=== PATIENT | male | born 1955 | race Caucasian/White ===

== ENCOUNTER 2017-03-03 18:56 | Emergency (ER) | payer OTHER ==
[2017-03-03 19:11] VITALS: BP 174/98
--- NOTE | 2017-03-03 19:13 | EDM.PDOC ---
ED HPI GENERAL MEDICAL PROBLEM - General Chief Complaint: Chest Pain Stated Complaint: BRONCHITIS-CHEST PAIN [id number] Time Seen by Provider: 03/03/17 19:13 Source of Information: Reports: Patient, RN, RN Notes Reviewed History Limitations: Reports: No Limitations - History of Present Illness INITIAL COMMENTS - FREE TEXT/NARRATIVE: Patient presents to the ER with c/o epigastric/chest pain. He states the pain is a 10/10. He describes the pain as burning. Patient states he has been seen at [facility] and was diagnosed with bronchitis, was given a Z-pack and a steroid. He states this burning pain has been going on for a few days. Patient admits to some constipation. He denies nausea or diarrhea, sob, fever or chills. Onset: Gradual Location: Reports: Chest Severity: Moderate Improves with: Reports: None Worsens with: Reports: None Associated Symptoms: Reports: Chest Pain, Cough, cough w sputum, Nausea/ Vomiting (states he coughs until he vomits at times) Treatments DYNAMITER: Reports: Other Medication(s) ("generic protonix" stated by the ) Mid-Sternal Chest Pain Score (Numeric/FACES): 10 - Related Data Allergies Allergy/AdvReac Type Severity Reaction Status Date / Time No Known Allergies Allergy Verified 03/03/17 19:10 Home Meds: Home Meds Levothyroxine [Synthroid] 25 mcg PO ACBREAKFAST 12/03/15 [History] Pantoprazole Sodium 40 mg PO DAILY 12/03/15 [History] Zolpidem [Ambien] 10 mg PO DAILY 02/09/16 [History] Azithromycin [Zithromax] 250 mg PO DAILY 03/03/17 [History] Prednisone [IMW: predniSONE] 10 mg PO DAILY 03/03/17 [History] Past Medical History HEENT History: Reports: None Cardiovascular History: Reports: None Respiratory History: Reports: Asthma, Bronchitis, Recurrent Gastrointestinal History: Reports: None Genitourinary History: Reports: None Musculoskeletal History: Reports: Back Pain, Chronic Neurological History: Reports: None Psychiatric History: Reports: None Endocrine/Metabolic History: Reports: None Hematologic History: Reports: None Immunologic History: Reports: None Oncologic (Cancer) History: Reports: None Dermatologic History: Reports: None - Infectious Disease History Infectious Disease History: Reports: None - Past Surgical History Head Surgeries/Procedures: Reports: None Social & Family History - Family History Family Medical History: Noncontributory - Tobacco Use Smoking Status *Q: Never Smoker Second Hand Smoke Exposure: No - Caffeine Use Caffeine Use: Reports: Coffee, Soda - Alcohol Use Days Per Week of Alcohol Use: 0 - Recreational Drug Use Recreational Drug Use: No - Living Situation & Occupation Living situation: Reports: , with Family Occupation: Employed ED ROS GENERAL - Review of Systems Review Of Systems: ROS reveals no pertinent complaints other than HPI. ED EXAM, GENERAL - Physical Exam Exam: See Below Exam Limited By: No Limitations General Appearance: Alert, WD/WN, No Apparent Distress Eye Exam: Bilateral Eye: Normal Inspection Ears: Normal External Exam, Hearing Grossly Normal Nose: Normal Inspection Throat/Mouth: Normal Inspection, Normal Lips, Normal Teeth, Normal Gums, Normal Oropharynx, Normal Voice, No Airway Compromise Head: Atraumatic, Normocephalic Neck: Normal Inspection, Supple, Non-Tender, Full Range of Motion Respiratory/Chest: No Respiratory Distress, Lungs Clear, Normal Breath Sounds, No Accessory Muscle Use, Chest Non-Tender Cardiovascular: Normal Peripheral Pulses, Regular Rate, Rhythm, No Edema, No Gallop, No JVD, No Murmur, No Rub Peripheral Pulses: 2+: Radial (L), Radial (R) GI/Abdominal: Normal Bowel Sounds, Soft, Non-Tender, No Organomegaly, No Distention, No Abnormal Bruit, No Mass (Male) Exam: Deferred Rectal (Males) Exam: Deferred Back Exam: Normal Inspection, Full Range of Motion Extremities: Normal Inspection, Normal Range of Motion, Non-Tender, No Pedal Edema, Normal Capillary Refill Neurological: Alert, Oriented, Normal Cognition, Normal Gait, Normal Reflexes, No Motor/Sensory Deficits Psychiatric: Normal Affect, Normal Mood Skin Exam: Warm, Dry, Intact, Normal Color, No Rash Lymphatic: No Adenopathy EKG INTERPRETATION EKG Date: 03/03/17 Time: 19:06 Rhythm: NSR [place]: LAD-Left [place] Deviation P-Wave: Present QRS: Wide ST-T: Normal QT: Normal Comparison: NA - No Prior EKG Course - Vital Signs Last Recorded V/S: Last Vital Signs Temp 97.6 F 03/03/17 19:00 Pulse 71 03/03/17 19:00 Resp 18 03/03/17 19:00 BP 174/98 H 03/03/17 19:00 Pulse Ox 98 03/03/17 19:00 - Orders/Labs/Meds Orders: Active Orders 24 hr Category Date Time Status EKG Documentation Completion [RC] STAT Care 03/03/17 19:10 Active Peripheral IV Care [RC] . DIRECTED Care 03/03/17 19:56 Active Peripheral IV Insertion Adult [OM.PC] Stat Oth 03/03/17 19:56 Ordered Labs: Laboratory Tests 03/03/17 03/03/17 Range/Units 19:20 19:20 WBC 11.6 H (5.0-10.0) 10^3/uL RBC 5.26 (4.6-6.2) 10^6/uL Hgb 15.5 D (14.0-18.0) g/dL Hct 46.6 (40.0-54.0) % MCV 88.6 (80-100) fL MCH 29.5 (27.0-34.0) pg MCHC 33.3 (33.0-35.0) g/dL Plt Count 258 (150-450) 10^3/uL Neut % (Auto) 75.7 H (42.2-75.2) % Lymph % (Auto) 17.5 L (20.5-50.1) % [place] % (Auto) 4.6 (2-8) % Eos % (Auto) 1.6 (1.0-3.0) % Baso % (Auto) 0.6 (0.0-1.0) % Sodium 136 (135-145) mmol/L Potassium 4.6 (3.6-5.0) mmol/L Chloride 102 (101-111) mmol/L Carbon Dioxide 24.0 (21.0-31.0) mmol/L Anion Gap 14.6 BUN 16 (7-18) mg/dL Creatinine 1.0 (0.6-1.3) mg/dL Est Cr Clr Drug Dosing 78.07 mL/min Estimated GFR (MDRD) > 60 BUN/Creatinine Ratio 16.00 Glucose 119 H (74-105) mg/dL Calcium 8.9 (8.4-10.2) mg/dl Total Bilirubin 0.4 (0.2-1.0) mg/dL AST 34 (10-42) IU/L ALT 24 (10-60) IU/L Alkaline Phosphatase 66 (42-121) IU/L Troponin I 1.00 H* (0.00-0.02) ng/ml Total Protein 7.6 (6.7-8.2) g/dl Albumin 4.2 (3.2-5.5) g/dl Globulin 3.4 Albumin/Globulin Ratio 1.24 Meds: Medications Discontinued Medications Generic Name Dose Route Start Last Admin Trade Name Freq PRN Reason Stop Dose Admin Aspirin 324 mg 03/03/17 19:54 03/03/17 20:04 Aspirin PO 03/03/17 19:55 324 mg ONETIME ONE Administration Morphine Sulfate 2 mg 03/03/17 20:36 03/03/17 20:41 Morphine IVPUSH 03/03/17 20:37 2 mg ONETIME ONE Administration Sodium Chloride 10 ml 03/03/17 19:55 03/03/17 20:05 Saline Flush FLUSH 10 ml ASDIRECTED PRN Administration Keep Vein Open - Radiology Interpretation Free Text/Narrative:: chest xray: [place] mild bibasilar atelectasis, but no lobar consolidation, pleural effusion, or pneumothorax. See Rad report Departure - Departure Time of Disposition: 20:34 Disposition: DC/Tfer to Acute Hospital 02 Reason for Transfer *Q: Other Condition: Fair, Serious Clinical Impression: NSTEMI (non-ST elevated myocardial infarction) Referrals: PCP,None [Primary Care Provider] - Forms: ED Department Discharge, Interfacility Transfer EMTALA - My Orders Last 24 Hours: My Active Orders 03/03/17 19:10 EKG Documentation Completion [RC] STAT 03/03/17 19:56 Peripheral IV Care [RC] . DIRECTED Peripheral IV Insertion Adult [OM.PC] Stat - Assessment/Plan Last 24 Hours: My Active Orders 03/03/17 19:10 EKG Documentation Completion [RC] STAT 03/03/17 19:56 Peripheral IV Care [RC] . DIRECTED Peripheral IV Insertion Adult [OM.PC] Stat
[2017-03-03 19:48] LABS: CHLORIDE,CL 102 mmol/L (101-111); SODIUM,NA 136 mmol/L (135-145)
[2017-03-03] MEDS ORDERED: Aspirin 81 MG Tab.Chew PO ONE (19:54)
[2017-03-03] MEDS ORDERED: Sodium Chloride 0.9% 10 ML Syringe FLUSH PRN (19:55)
[2017-03-03] MEDS ORDERED: Morphine 2 MG/ML Syringe IVPUSH ONE (20:36)
--- NOTE | 2017-03-05 11:31 | EKG ---
03/03/2017 - DARIELA MONROY - This 12-lead EKG shows normal sinus rhythm with heart rate of 70, left axis deviation. No significant ST elevation or ST depression noted on this 12-lead EKG. Nonspecific T-wave changes noted on lead I and aVL. [facility] /[id number]
== END 2017-03-03 21:12 ==
LOC: DL.ED 18:56
DX: I21.4 Non-ST elevation (NSTEMI) myocardial infarction (principal); J45.909 Unspecified asthma, uncomplicated; Z79.899 Other long term (current) drug therapy
CPT/HCPCS: 36415; 71020; 80053; 84484; 85025; 93005; 96374; 99285; A9270; J2270; J7050

== ENCOUNTER 2017-06-08 14:44 | Emergency (ER) | payer OTHER ==
--- NOTE | 2017-06-08 15:06 | EDM.PDOC ---
<Horacio Avery - Last Filed: 06/08/17 18:47> ED HPI GENERAL MEDICAL PROBLEM - General Chief Complaint: Chest Pain Stated Complaint: CHEST PAINS, [id number] Time Seen by Provider: 06/08/17 15:06 Source of Information: Reports: Patient, Old Records, RN, RN Notes Reviewed History Limitations: Reports: No Limitations - History of Present Illness INITIAL COMMENTS - FREE TEXT/NARRATIVE: Patient arrives from home by POV with complaint of recurrent chest pain at rest x5 days. Patient has known coronary artery disease and history of MT. The pain has been relieved by nitro 0.4mg SL, he also took Aspirin 650mg po x1 prior to arrival to the ER. Admits to shortness of breath with chest pain. Denies nausea , vomiting, orthopnea, cough, palpitations or edema. Duration: Recurring Location: Reports: Chest Quality: Reports: Ache Severity: Moderate Improves with: Reports: None Worsens with: Reports: None Associated Symptoms: Reports: No Other Symptoms Treatments SIGNAL INTELLIGENCE/ELECTRONIC WARFARE: Reports: Aspirin, Nitroglycerin Middle Chest Pain Score (Numeric/FACES): 4 - Related Data Allergies Allergy/AdvReac Type Severity Reaction Status Date / Time No Known Allergies Allergy Verified 06/08/17 15:09 Home Meds: Home Meds Levothyroxine [Synthroid] 50 mcg PO ACBREAKFAST 12/03/15 [History] Pantoprazole Sodium 40 mg PO DAILY 12/03/15 [History] Zolpidem [Ambien] 10 mg PO DAILY 02/09/16 [History] Aspirin [Adult Low Dose Aspirin EC] 81 mg PO DAILY 03/21/17 [History] Clopidogrel Bisulfate [Clopidogrel] 75 mg PO DAILY 03/21/17 [History] Metoprolol Succinate [Toprol XL] 50 mg PO DAILY 03/21/17 [History] Nitroglycerin [Nitroglycerin] 0.4 mg PO ASDIRECTED PRN 03/21/17 [History] atorvaSTATin Calcium [Atorvastatin Calcium] 80 mg PO BEDTIME 03/21/17 [History] Past Medical History HEENT History: Reports: Impaired Vision Cardiovascular History: Reports: Angina, CAD, Hypertension, MT, PTCA, Stents Respiratory History: Reports: Asthma, Bronchitis, Recurrent, Other (See Below) ( insomnia.) Gastrointestinal History: Reports: GERD Genitourinary History: Reports: None Musculoskeletal History: Reports: Back Pain, Chronic Neurological History: Reports: None Psychiatric History: Reports: None Endocrine/Metabolic History: Reports: None, Hypothyroidism Hematologic History: Reports: None Immunologic History: Reports: None Oncologic (Cancer) History: Reports: None Dermatologic History: Reports: None - Infectious Disease History Infectious Disease History: Reports: None - Past Surgical History Head Surgeries/Procedures: Reports: None Cardiovascular Surgical History: Reports: Coronary Artery Stent, Percutaneous Transluminal Angioplasty GI Surgical History: Reports: Appendectomy Social & Family History - Family History Family Medical History: Noncontributory - Tobacco Use Smoking Status *Q: Never Smoker Second Hand Smoke Exposure: No - Caffeine Use Caffeine Use: Reports: Coffee, Soda - Alcohol Use Days Per Week of Alcohol Use: 0 - Recreational Drug Use Recreational Drug Use: No - Living Situation & Occupation Living situation: Reports: , with Family Occupation: Employed ED ROS GENERAL - Review of Systems Review Of Systems: ROS reveals no pertinent complaints other than HPI. ED EXAM, GENERAL - Physical Exam Exam: See Below Exam Limited By: No Limitations General Appearance: Alert, WD/WN, No Apparent Distress Eye Exam: Bilateral Eye: Normal Inspection Ears: Normal External Exam Nose: Normal Inspection, Normal Mucosa, No Blood, Other (patient nasal airways.) Throat/Mouth: Normal Inspection, Normal Voice, Other (patient oral airways.) Head: Atraumatic, Normocephalic Neck: Normal Inspection, Supple, Non-Tender, Full Range of Motion Respiratory/Chest: No Respiratory Distress, No Accessory Muscle Use, Chest Non- Tender, Wheezing (scattered throughout bilateral.). No: Rales, Rhonchi, Stridor Cardiovascular: Normal Peripheral Pulses, Regular Rate, Rhythm, No Edema, No Gallop, No JVD, No Murmur, No Rub GI/Abdominal: Normal Bowel Sounds, Soft, Non-Tender, No Distention, No Abnormal Bruit (Male) Exam: Deferred Rectal (Males) Exam: Deferred Back Exam: Normal Inspection, Full Range of Motion, NT Extremities: Normal Inspection, Normal Range of Motion, Non-Tender, Normal Capillary Refill, No Pedal Edema Neurological: Alert, Oriented, CN II-XII Intact, Normal Cognition, Normal Gait, No Motor/Sensory Deficits Psychiatric: Normal Affect, Normal Mood Skin Exam: Warm, Dry, Intact, Normal Color, No Rash EKG INTERPRETATION EKG Date: 06/08/17 Time: 15:04 Rhythm: Other (sinus bradycardia) [place]: LAD-Left [place] Deviation P-Wave: Present QRS: Normal ST-T: Other (nonspecific T abnormalities, lateral leads.) QT: Normal Course - Vital Signs Last Recorded V/S: Last Vital Signs Temp 97.8 F 06/08/17 19:05 Pulse 59 L 06/08/17 19:05 Resp 16 06/08/17 19:05 BP 108/54 L 06/08/17 19:05 Pulse Ox 97 06/08/17 19:05 - Orders/Labs/Meds Orders: Active Orders 24 hr Category Date Time Status EKG 12 Lead [EKG Documentation Completion] [] STAT Care 06/08/17 15:18 Active EKG Documentation Completion [RC] ROUTINE Care 06/08/17 20:00 Active Peripheral IV Care [RC] . DIRECTED Care 06/08/17 15:19 Active Regular Diet [DIET] Diet 06/08/17 Dinner Active Sodium Chloride 0.9% [Saline Flush] Med 06/08/17 15:18 Active 10 ml FLUSH ASDIRECTED PRN Peripheral IV Insertion Adult [OM.PC] Stat Oth 06/08/17 15:18 Ordered Medication Orders Sodium Chloride (Saline Flush) 10 ml FLUSH ASDIRECTED PRN PRN Reason: Keep Vein Open Last Admin: 06/08/17 15:23 Dose: 10 ml Labs: Laboratory Tests 06/08/17 06/08/17 06/08/17 Range/Units 15:30 15:30 15:30 WBC 7.3 (5.0-10.0) 10^3/uL RBC 4.50 L (4.6-6.2) 10^6/uL Hgb 13.1 L D (14.0-18.0) g/dL Hct 40.4 (40.0-54.0) % MCV 89.8 (80-100) fL MCH 29.1 (27.0-34.0) pg MCHC 32.4 L (33.0-35.0) g/dL Plt Count 187 (150-450) 10^3/uL Neut % (Auto) 62.2 (42.2-75.2) % Lymph % (Auto) 27.9 (20.5-50.1) % [place] % (Auto) 5.7 (2-8) % Eos % (Auto) 3.5 H (1.0-3.0) % Baso % (Auto) 0.7 (0.0-1.0) % PT 10.2 (9.0-12.0) SEC INR 1.0 (0.9-1.2) APTT 26.9 (22.0-34.0) SEC D-Dimer, Quantitative (0-400) ng/mL Sodium 136 (135-145) mmol/L Potassium 4.1 (3.6-5.0) mmol/L Chloride 100 L (101-111) mmol/L Carbon Dioxide 29.0 (21.0-31.0) mmol/L Anion Gap 11.1 BUN 27 H (7-18) mg/dL Creatinine 1.0 (0.6-1.3) mg/dL Est Cr Clr Drug Dosing 80.53 mL/min Estimated GFR (MDRD) > 60 BUN/Creatinine Ratio 27.00 Glucose 89 (74-105) mg/dL Calcium 9.0 (8.4-10.2) mg/dl Total Bilirubin 0.2 (0.2-1.0) mg/dL AST 25 (10-42) IU/L ALT 40 (10-60) IU/L Alkaline Phosphatase 63 (42-121) IU/L Troponin I 0.02 (0.00-0.02) ng/ml B-Natriuretic Peptide 118 H (0-100) pg/ml Total Protein 6.8 (6.7-8.2) g/dl Albumin 3.9 (3.2-5.5) g/dl Globulin 2.9 Albumin/Globulin Ratio 1.34 06/08/17 06/08/17 Range/Units 15:30 20:05 WBC (5.0-10.0) 10^3/uL RBC (4.6-6.2) 10^6/uL Hgb (14.0-18.0) g/dL Hct (40.0-54.0) % MCV (80-100) fL MCH (27.0-34.0) pg MCHC (33.0-35.0) g/dL Plt Count (150-450) 10^3/uL Neut % (Auto) (42.2-75.2) % Lymph % (Auto) (20.5-50.1) % [place] % (Auto) (2-8) % Eos % (Auto) (1.0-3.0) % Baso % (Auto) (0.0-1.0) % PT (9.0-12.0) SEC INR (0.9-1.2) APTT (22.0-34.0) SEC D-Dimer, Quantitative < 100 (0-400) ng/mL Sodium (135-145) mmol/L Potassium (3.6-5.0) mmol/L Chloride (101-111) mmol/L Carbon Dioxide (21.0-31.0) mmol/L Anion Gap BUN (7-18) mg/dL Creatinine (0.6-1.3) mg/dL Est Cr Clr Drug Dosing mL/min Estimated GFR (MDRD) BUN/Creatinine Ratio Glucose (74-105) mg/dL Calcium (8.4-10.2) mg/dl Total Bilirubin (0.2-1.0) mg/dL AST (10-42) IU/L ALT (10-60) IU/L Alkaline Phosphatase (42-121) IU/L Troponin I < 0.02 (0.00-0.02) ng/ml B-Natriuretic Peptide (0-100) pg/ml Total Protein (6.7-8.2) g/dl Albumin (3.2-5.5) g/dl Globulin Albumin/Globulin Ratio Meds: Medications Generic Name Dose Route Start Last Admin Trade Name Freq PRN Reason Stop Dose Admin Sodium Chloride 10 ml 06/08/17 15:18 06/08/17 15:23 Saline Flush FLUSH 10 ml ASDIRECTED PRN Administration Keep Vein Open - Radiology Interpretation Free Text/Narrative:: Chest x-ray: No acute cardiopulmonary process. See Rad report. - Re-Assessments/Exams Free Text/Narrative Re-Assessment/Exam: 06/08/17 17:26 Pt with negative EKG and Troponin of 0.02, but Sx's relieved with NTG. Given pt' s Hx he will have 4 hour repeat Troponin and EKG at 2000HRS. Care of pt transferred to [facility] at 1900HR shift change. Departure - Departure Disposition: Home, Self-Care 01 Clinical Impression: Chest pain Qualifiers: Chest pain type: unspecified Qualified Code(s): R07.9 - Chest pain, unspecified Instructions: Nonspecific Chest Pain, [id number] Forms: ED Department Discharge Additional Instructions: Follow up with accounting systems manager as scheduled. Contact accounting systems manager in am to determine if need to be see jairolier light activity Urgent follow up if recurrent pain low acid diet <Dolly Perry - Last Filed: 06/08/17 21:18> Course - Re-Assessments/Exams Free Text/Narrative Re-Assessment/Exam: Repeat Troponin negative, Repeat EKG NSR, No acute changes, Discharge patient home. He has scheduled routine appointment with accounting systems manager already scheduled for 06/21. Recommend he still contact office in am and allow accounting systems manager to determine if he desires patient to be seen earlier. Instructed light activity and urgent follow up if recurrent chest pain. 06/08/17 21:09 Departure - Departure Time of Disposition: 21:12 Condition: Undetermined
[2017-06-08] MEDS ORDERED: Sodium Chloride 0.9% 10 ML Syringe FLUSH PRN (15:18)
--- NOTE | 2017-06-08 15:58 | CR ---
Clinical history: 61-year-old male chest pain. Interpretation: No acute new cardiopulmonary abnormality identified in the interval since February 28 017 exam. Normal cardiac silhouette without alveolar edema or dependent effusion (external property assessment monitor lead s). No lung mass, hilar lymphadenopathy or focal lobar pneumonia. No atelectasis/collapse. No pneumothorax.
[2017-06-08 16:12] LABS: ANION GAP 11.1; CHLORIDE,CL 100 mmol/L (101-111); SODIUM,NA 136 mmol/L (135-145)
[2017-06-08 19:24] VITALS: BP 108/54
--- NOTE | 2017-06-09 15:07 | EKG ---
06/08/2017 - RAMO MONROY - FINDINGS: This 12-lead EKG shows sinus bradycardia with a ventricular rate of 56. Left axis deviation. Nonspecific T-wave changes in the lateral leads. No acute ST-T wave changes. MOD /[id number]
--- NOTE | 2017-06-13 09:26 | EKG ---
06/08/2017 - RAMO MONROY - FINDINGS: This is the second of two EKGs performed during this ER visit of June 08, 2017. This second EKG shows a sinus bradycardia with a ventricular rate of 59. There is left axis deviation. There are changes in the lateral leads suggesting previous lateral infarction of indeterminate age. There are no acute ST-T wave changes. There are no interval changes when compared to previous study performed 5 hours earlier. [facility] /[id number]
== END 2017-06-08 21:30 | disposition home or self-care (01) ==
LOC: DL.ED 14:44
DX: R07.9 Chest pain, unspecified (principal); I10 Essential (primary) hypertension; I25.10 Atherosclerotic heart disease of native coronary artery without angina pectoris; K21.9 Gastro-esophageal reflux disease without esophagitis; E03.9 Hypothyroidism, unspecified; I25.2 Old myocardial infarction; Z79.02 Long term (current) use of antithrombotics/antiplatelets; Z79.82 Long term (current) use of aspirin; Z79.899 Other long term (current) drug therapy; Z95.5 Presence of coronary angioplasty implant and graft
CPT/HCPCS: 36415; 71045; 80053; 83880; 84484; 85025; 85379; 85610; 85730; 93005; 99285; J7050

== ENCOUNTER 2018-02-23 16:37 | Emergency (ER) | payer OTHER ==
[2018-02-23 16:55] VITALS: BP 140/61
[2018-02-23 17:36] LABS: ANION GAP 11.9; CHLORIDE,CL 103 mmol/L (101-111); SODIUM,NA 137 mmol/L (135-145)
--- NOTE | 2018-02-23 17:48 | CR ---
Clinical history: 62-year-old male chest pain. Interpretation: No acute new cardiopulmonary abnormality identified in the interval since 08 June 2017 exam. External cafeteria monitor leads. Normal cardiac silhouette. No cephalization of flow, signs of alveola r edema or dependent effusion. No new lung mass, hilar lymphadenopathy or focal lobar pneumonia. No atelectasis/collapse. No pneumothorax.
--- NOTE | 2018-02-23 18:10 | EDM.PDOC ---
ED HPI GENERAL MEDICAL PROBLEM - General Chief Complaint: Chest Pain Stated Complaint: CHEST PAINS [id number] Time Seen by Provider: 02/23/18 17:55 Source of Information: Reports: Patient History Limitations: Reports: No Limitations - History of Present Illness INITIAL COMMENTS - FREE TEXT/NARRATIVE: This 62 yo male patient reports to the ED with a 4 day history of intermittent chest pains. The patient reports that he has no pain at the time of the visit. The patient reports his pain was a sharp pain in the mid to right chest. The patient report that normally he is working when his pain starts and the pain normally goes away on its own. The patient reports that he has a history of a previous heart attack. The patient sees Dr. Gutierrez from cardiology in [place] with his last visit less than 1 month ago. The patient reports that he called Adrianne Loyns prior to coming to the ED and was advised to come directly to the ED. The patient also report a history of asthma. The patient reports that he also gets a little short of breath when his chest pain starts. Onset Date: 02/19/18 Duration: Intermittent, Resolved Prior to Arrival Location: Reports: Chest (mid to left chest ) Quality: Reports: Ache Severity: Moderate Improves with: Reports: None Worsens with: Reports: None Associated Symptoms: Reports: Chest Pain, Shortness of Breath - Related Data Allergies Allergy/AdvReac Type Severity Reaction Status Date / Time No Known Allergies Allergy Verified 02/23/18 17:05 Home Meds: Home Meds Levothyroxine [Synthroid] 50 mcg PO ACBREAKFAST 12/03/15 [History] Pantoprazole Sodium 40 mg PO DAILY 12/03/15 [History] Zolpidem [Ambien] 10 mg PO DAILY 02/09/16 [History] Aspirin [Adult Low Dose Aspirin EC] 81 mg PO DAILY 03/21/17 [History] Clopidogrel Bisulfate [Clopidogrel] 75 mg PO DAILY 03/21/17 [History] Metoprolol Succinate [Toprol XL] 50 mg PO DAILY 03/21/17 [History] Nitroglycerin 0.4 mg PO ASDIRECTED PRN 03/21/17 [History] atorvaSTATin Calcium [Atorvastatin Calcium] 80 mg PO BEDTIME 03/21/17 [History] Past Medical History HEENT History: Reports: Impaired Vision Cardiovascular History: Reports: Angina, CAD, Hypertension, [place], PTCA, Stents Respiratory History: Reports: Asthma, Bronchitis, Recurrent Gastrointestinal History: Reports: GERD Genitourinary History: Reports: None Musculoskeletal History: Reports: Back Pain, Chronic Neurological History: Reports: None Psychiatric History: Reports: None Endocrine/Metabolic History: Reports: Hypothyroidism Hematologic History: Reports: None Immunologic History: Reports: None Oncologic (Cancer) History: Reports: None Dermatologic History: Reports: None - Infectious Disease History Infectious Disease History: Reports: None, Chicken Pox, Measles, Mumps, Shingles - Past Surgical History Head Surgeries/Procedures: Reports: None Cardiovascular Surgical History: Reports: Coronary Artery Stent, Percutaneous Transluminal Angioplasty GI Surgical History: Reports: Appendectomy Social & Family History - Family History Family Medical History: Noncontributory - Tobacco Use Smoking Status *Q: Former Smoker Years of Tobacco use: 30 Used Tobacco, but Quit: Yes Month/Year Tobacco Last Used: 20 Second Hand Smoke Exposure: No - Caffeine Use Caffeine Use: Reports: Coffee - Recreational Drug Use Recreational Drug Use: No - Living Situation & Occupation Living situation: Reports: , with Family Occupation: Employed ED ROS GENERAL - Review of Systems Review Of Systems: ROS reveals no pertinent complaints other than HPI. ED EXAM, GENERAL - Physical Exam Exam: See Below Exam Limited By: No Limitations General Appearance: Alert, WD/WN, No Apparent Distress Eye Exam: Bilateral Eye: EOMI, Normal Inspection, PERRL Ears: Normal External Exam, Normal Canal, Hearing Grossly Normal, Normal TMs Nose: Normal Inspection, Normal Mucosa, No Blood Throat/Mouth: Normal Inspection, Normal Lips, Normal Teeth, Normal Gums, Normal Oropharynx, Normal Voice, No Airway Compromise Head: Atraumatic, Normocephalic Neck: Normal Inspection, Supple, Non-Tender, Full Range of Motion Respiratory/Chest: No Respiratory Distress, Lungs Clear, Normal Breath Sounds, No Accessory Muscle Use, Chest Non-Tender Cardiovascular: Normal Peripheral Pulses, Regular Rate, Rhythm, No Edema, No Gallop, No JVD, No Murmur, No Rub GI/Abdominal: Normal Bowel Sounds, Soft, Non-Tender, No Organomegaly, No Distention, No Abnormal Bruit, No Mass, Other (obese) (Male) Exam: Deferred Rectal (Males) Exam: Deferred Back Exam: Normal Inspection Extremities: Normal Inspection, Normal Range of Motion, Non-Tender, Normal Capillary Refill, No Pedal Edema Neurological: Alert, Oriented, CN II-XII Intact, Normal Cognition, Normal Gait, Normal Reflexes, No Motor/Sensory Deficits Psychiatric: Normal Affect, Normal Mood Skin Exam: Warm, Dry, Intact, Normal Color, No Rash Lymphatic: No Adenopathy Course - Vital Signs Last Recorded V/S: Last Vital Signs Temp 36.6 C 02/23/18 16:54 Pulse 59 L 02/23/18 16:54 Resp 16 02/23/18 16:54 BP 140/61 02/23/18 16:54 Pulse Ox 98 02/23/18 16:54 - Orders/Labs/Meds Orders: Active Orders 24 hr Category Date Time Status EKG 12 Lead [EKG Documentation Completion] [RC] STAT Care 02/23/18 16:58 Active Labs: Laboratory Tests 02/23/18 02/23/18 Range/Units 17:10 17:10 WBC 5.7 (5.0-10.0) 10^3/uL RBC 4.34 L (4.6-6.2) 10^6/uL Hgb 13.2 L (14.0-18.0) g/dL Hct 39.7 L (40.0-54.0) % MCV 91.5 (80-100) fL MCH 30.4 (27.0-34.0) pg MCHC 33.2 (33.0-35.0) g/dL Plt Count 171 (150-450) 10^3/uL Neut % (Auto) 60.2 (42.2-75.2) % Lymph % (Auto) 27.6 (20.5-50.1) % [place] % (Auto) 6.7 (2-8) % Eos % (Auto) 4.8 H (1.0-3.0) % Baso % (Auto) 0.7 (0.0-1.0) % Sodium 137 (135-145) mmol/L Potassium 3.9 (3.6-5.0) mmol/L Chloride 103 (101-111) mmol/L Carbon Dioxide 26.0 (21.0-31.0) mmol/L Anion Gap 11.9 BUN 18 (7-18) mg/dL Creatinine 1.0 (0.6-1.3) mg/dL Est Cr Clr Drug Dosing TNP Estimated GFR (MDRD) > 60 BUN/Creatinine Ratio 18.00 Glucose 164 H (74-105) mg/dL Calcium 8.4 (8.4-10.2) mg/dl Total Bilirubin 0.6 (0.2-1.0) mg/dL AST 24 (10-42) IU/L ALT 22 (10-60) IU/L Alkaline Phosphatase 68 (42-121) IU/L Troponin I < 0.02 (0.00-0.02) ng/ml Total Protein 6.6 L (6.7-8.2) g/dl Albumin 3.8 (3.2-5.5) g/dl Globulin 2.8 Albumin/Globulin Ratio 1.36 Departure - Departure Time of Disposition: 18:09 Disposition: Home, Self-Care 01 Condition: Fair Clinical Impression: Nonspecific chest pain Instructions: Nonspecific Chest Pain, [id number] Forms: ED Department Discharge Care Plan Goals: The patient was advised of the examination, lab, EKG and x-ray results during the visit. The patient was encouraged to continue to take his medications as prescribed. The patient should contact either Dr. Gutierrez or Adrianne Lyons for continued evaluation and management. If the patient has any additional symptoms or concerns, the patient should either return to the emergency department or visit his primary care facility. - My Orders Last 24 Hours: My Active Orders 02/23/18 16:58 EKG 12 Lead [EKG Documentation Completion] [RC] STAT - Assessment/Plan Last 24 Hours: My Active Orders 02/23/18 16:58 EKG 12 Lead [EKG Documentation Completion] [RC] STAT
== END 2018-02-23 18:25 | disposition home or self-care (01) ==
LOC: DL.ED 16:37
DX: R07.9 Chest pain, unspecified (principal); R06.02 Shortness of breath; I10 Essential (primary) hypertension; E03.9 Hypothyroidism, unspecified; Z87.891 Personal history of nicotine dependence; Z79.82 Long term (current) use of aspirin; Z95.5 Presence of coronary angioplasty implant and graft
CPT/HCPCS: 36415; 71045; 80053; 84484; 85025; 93005; 99285

== ENCOUNTER 2018-07-21 16:51 | Emergency (ER) | payer OTHER ==
[2018-07-21 17:12] VITALS: BP 141/81
--- NOTE | 2018-07-21 17:15 | EDM.PDOC ---
ED HPI GENERAL MEDICAL PROBLEM - General Chief Complaint: Chest Pain Stated Complaint: UNKNOWN Time Seen by Provider: 07/21/18 17:05 Source of Information: Reports: Patient History Limitations: Reports: No Limitations - History of Present Illness INITIAL COMMENTS - FREE TEXT/NARRATIVE: This 63 yo male patient reports to the ED from the [facility] due to left upper chest pain associated with increased shortness of breath. The patient reports he has been having intermittent chest pain for the past week. The patient states he currently has very little pain. The patient reports his pain seems to get worse with exertion and is improved with rest. The patient has a history of asthma, hypertension and a previous AK in February of 2017. The patient reports he has been using his inhaler 2 times per day which has reduced his chest pain. The patient reports he has not been experiencing any coughing or fevers. Onset Date: 07/14/18 Duration: Intermittent Location: Reports: Chest (left upper chest) Quality: Reports: Ache, Dull Severity: Moderate Improves with: Reports: Rest Worsens with: Reports: Movement Context: Reports: Other Associated Symptoms: Reports: Chest Pain, Shortness of Breath Treatments PALS SPECIALIST: Reports: EKG, IV/IO Left Chest Pain Score (Numeric/FACES): 4 - Related Data Allergies Allergy/AdvReac Type Severity Reaction Status Date / Time No Known Allergies Allergy Verified 07/21/18 17:08 Home Meds: Home Meds Levothyroxine [Synthroid] 50 mcg PO ACBREAKFAST 12/03/15 [History] Pantoprazole Sodium 40 mg PO DAILY 12/03/15 [History] Zolpidem [Ambien] 10 mg PO DAILY 02/09/16 [History] Aspirin [Adult Low Dose Aspirin EC] 81 mg PO DAILY 03/21/17 [History] Clopidogrel Bisulfate [Clopidogrel] 75 mg PO DAILY 03/21/17 [History] Metoprolol Succinate [Toprol XL] 50 mg PO DAILY 03/21/17 [History] Nitroglycerin 0.4 mg PO ASDIRECTED PRN 03/21/17 [History] atorvaSTATin Calcium [Atorvastatin Calcium] 80 mg PO BEDTIME 03/21/17 [History] Past Medical History HEENT History: Reports: Impaired Vision Cardiovascular History: Reports: Angina, CAD, Hypertension, [place], PTCA, Stents Respiratory History: Reports: Asthma, Bronchitis, Recurrent Gastrointestinal History: Reports: GERD Genitourinary History: Reports: None Musculoskeletal History: Reports: Back Pain, Chronic Neurological History: Reports: None Psychiatric History: Reports: None Endocrine/Metabolic History: Reports: Hypothyroidism Hematologic History: Reports: None Immunologic History: Reports: None Oncologic (Cancer) History: Reports: None Dermatologic History: Reports: None - Infectious Disease History Infectious Disease History: Reports: Chicken Pox, Measles, Mumps, Shingles - Past Surgical History Head Surgeries/Procedures: Reports: None Cardiovascular Surgical History: Reports: Coronary Artery Stent, Percutaneous Transluminal Angioplasty GI Surgical History: Reports: Appendectomy Social & Family History - Family History Family Medical History: Noncontributory - Tobacco Use Smoking Status *Q: Former Smoker Years of Tobacco use: 20 Used Tobacco, but Quit: Yes Month/Year Tobacco Last Used: unknown - Caffeine Use Caffeine Use: Reports: Coffee - Recreational Drug Use Recreational Drug Use: No - Living Situation & Occupation Living situation: Reports: , with Family Occupation: Employed ED ROS GENERAL - Review of Systems Review Of Systems: ROS reveals no pertinent complaints other than HPI. ED EXAM, GENERAL - Physical Exam Exam: See Below Exam Limited By: No Limitations General Appearance: Alert, WD/WN, Mild Distress Eye Exam: Bilateral Eye: EOMI, Normal Inspection, PERRL Ears: Normal External Exam, Normal Canal, Hearing Grossly Normal, Normal TMs Nose: Normal Inspection, Normal Mucosa, No Blood Throat/Mouth: Normal Inspection, Normal Lips, Normal Teeth, Normal Gums, Normal Oropharynx, Normal Voice, No Airway Compromise Head: Atraumatic, Normocephalic Neck: Normal Inspection, Supple, Non-Tender, Full Range of Motion Respiratory/Chest: No Respiratory Distress Cardiovascular: Normal Peripheral Pulses, Regular Rate, Rhythm, No Edema, No Gallop, No JVD, No Murmur, No Rub GI/Abdominal: Normal Bowel Sounds, Soft, Non-Tender, No Organomegaly, No Distention, No Abnormal Bruit, No Mass (Male) Exam: Deferred Rectal (Males) Exam: Deferred Back Exam: Normal Inspection, Full Range of Motion, NT Extremities: Normal Inspection, Normal Range of Motion, Non-Tender, Normal Capillary Refill, No Pedal Edema Neurological: Alert, Oriented, CN II-XII Intact, Normal Cognition, Normal Gait, Normal Reflexes, No Motor/Sensory Deficits Psychiatric: Normal Affect, Normal Mood Skin Exam: Warm, Dry, Intact, Normal Color, No Rash Lymphatic: No Adenopathy Course - Vital Signs Last Recorded V/S: Last Vital Signs Temp 36.9 C 07/21/18 17:13 Pulse 55 L 07/21/18 17:11 Resp 11 L 07/21/18 17:11 BP 141/81 H 07/21/18 17:11 Pulse Ox 99 07/21/18 17:11 - Orders/Labs/Meds Orders: Active Orders 24 hr Category Date Time Status EKG Documentation Completion [RC] URGENT Care 07/21/18 16:38 Active Chest 1V Frontal [CR] Urgent Exams 07/21/18 16:38 Taken UA W/MICROSCOPIC [URIN] Urgent Lab 07/21/18 17:33 Results Labs: Laboratory Tests 07/21/18 07/21/18 07/21/18 Range/Units 17:11 17:11 17:11 WBC 7.5 (5.0-10.0) 10^3/uL RBC 4.52 L (4.6-6.2) 10^6/uL Hgb 13.7 L (14.0-18.0) g/dL Hct 42.0 (40.0-54.0) % MCV 92.9 (80-100) fL MCH 30.3 (27.0-34.0) pg MCHC 32.6 L (33.0-35.0) g/dL Plt Count 191 (150-450) 10^3/uL Neut % (Auto) 68.8 (42.2-75.2) % Lymph % (Auto) 21.9 (20.5-50.1) % [place] % (Auto) 6.0 (2-8) % Eos % (Auto) 2.9 (1.0-3.0) % Baso % (Auto) 0.4 (0.0-1.0) % Sodium 134 L (135-145) mmol/L Potassium 4.3 (3.6-5.0) mmol/L Chloride 102 (101-111) mmol/L Carbon Dioxide 21.0 (21.0-31.0) mmol/L Anion Gap 15.3 BUN 15 (7-18) mg/dL Creatinine 0.9 (0.6-1.3) mg/dL Est Cr Clr Drug Dosing 84.49 mL/min Estimated GFR (MDRD) > 60 BUN/Creatinine Ratio 16.66 Glucose 95 (74-105) mg/dL Calcium 8.7 (8.4-10.2) mg/dl Total Bilirubin 0.9 (0.2-1.0) mg/dL AST 25 (10-42) IU/L ALT 24 (10-60) IU/L Alkaline Phosphatase 67 (42-121) IU/L Troponin I < 0.02 (0.00-0.02) ng/ml B-Natriuretic Peptide 112 H (0-100) pg/ml Total Protein 7.0 (6.7-8.2) g/dl Albumin 3.9 (3.2-5.5) g/dl Globulin 3.1 Albumin/Globulin Ratio 1.26 Urine Color (YELLOW) Urine Appearance (CLEAR) Urine pH (5.0-9.0) Ur Specific [place] (1.005-1.030) Urine Protein (NEGATIVE) Urine Glucose (UA) (NEGATIVE) Urine Ketones (NEGATIVE) Urine Occult Blood (NEGATIVE) Urine Nitrite (NEGATIVE) Urine Bilirubin (NEGATIVE) Urine Urobilinogen (0.2-1.0) mg/dL Ur Leukocyte Esterase (NEGATIVE) 07/21/18 Range/Units 17:33 WBC (5.0-10.0) 10^3/uL RBC (4.6-6.2) 10^6/uL Hgb (14.0-18.0) g/dL Hct (40.0-54.0) % MCV (80-100) fL MCH (27.0-34.0) pg MCHC (33.0-35.0) g/dL Plt Count (150-450) 10^3/uL Neut % (Auto) (42.2-75.2) % Lymph % (Auto) (20.5-50.1) % [place] % (Auto) (2-8) % Eos % (Auto) (1.0-3.0) % Baso % (Auto) (0.0-1.0) % Sodium (135-145) mmol/L Potassium (3.6-5.0) mmol/L Chloride (101-111) mmol/L Carbon Dioxide (21.0-31.0) mmol/L Anion Gap BUN (7-18) mg/dL Creatinine (0.6-1.3) mg/dL Est Cr Clr Drug Dosing mL/min Estimated GFR (MDRD) BUN/Creatinine Ratio Glucose (74-105) mg/dL Calcium (8.4-10.2) mg/dl Total Bilirubin (0.2-1.0) mg/dL AST (10-42) IU/L ALT (10-60) IU/L Alkaline Phosphatase (42-121) IU/L Troponin I (0.00-0.02) ng/ml B-Natriuretic Peptide (0-100) pg/ml Total Protein (6.7-8.2) g/dl Albumin (3.2-5.5) g/dl Globulin Albumin/Globulin Ratio Urine Color Yellow (YELLOW) Urine Appearance Clear (CLEAR) Urine pH 7.0 (5.0-9.0) Ur Specific [place] 1.015 (1.005-1.030) Urine Protein Negative (NEGATIVE) Urine Glucose (UA) Negative (NEGATIVE) Urine Ketones Negative (NEGATIVE) Urine Occult Blood Trace-intact H (NEGATIVE) Urine Nitrite Negative (NEGATIVE) Urine Bilirubin Negative (NEGATIVE) Urine Urobilinogen 2.0 H (0.2-1.0) mg/dL Ur Leukocyte Esterase Negative (NEGATIVE) Meds: Medications Discontinued Medications Generic Name Dose Route Start Last Admin Trade Name Freq PRN Reason Stop Dose Admin Prednisone 40 mg 07/21/18 17:54 Prednisone PO 07/21/18 17:55 ONETIME ONE Departure - Departure Time of Disposition: 17:57 Disposition: Home, Self-Care 01 Condition: Fair Clinical Impression: Asthma exacerbation Qualifiers: Asthma severity: mild Asthma persistence: intermittent Qualified Code(s): J45.21 - Mild intermittent asthma with (acute) exacerbation Instructions: Nonspecific Chest Pain, Cses-[id number]-[id number], Asthma, Adult, [id number] Forms: ED Department Discharge Care Plan Goals: The patient was advised of the examination, lab, EKG and x-ray results during the visit. The patient was given an oral dose of Prednisone (40 mg). The patient was discharged with a script for Prednisone (20 mg) #8 to take 2 by mouth daily. If the patient has any additional symptoms or concerns, the patient should either return to the emergency department or visit his primary care facility. - My Orders Last 24 Hours: My Active Orders 07/21/18 16:38 EKG Documentation Completion [RC] URGENT Chest 1V Frontal [CR] Urgent 02/22/19 17:33 UA W/MICROSCOPIC [URIN] Urgent - Assessment/Plan Last 24 Hours: My Active Orders 07/21/18 16:38 EKG Documentation Completion [RC] URGENT Chest 1V Frontal [CR] Urgent 07/21/18 17:33 UA W/MICROSCOPIC [URIN] Urgent
[2018-07-21 17:41] LABS: ANION GAP 15.3; CHLORIDE,CL 102 mmol/L (101-111); SODIUM,NA 134 mmol/L (135-145)
[2018-07-21] MEDS ORDERED: predniSONE 20 MG Tab PO ONE (17:54)
== END 2018-07-21 18:09 | disposition home or self-care (01) ==
LOC: DL.ED 16:51
DX: J45.21 Mild intermittent asthma with (acute) exacerbation (principal); I25.10 Atherosclerotic heart disease of native coronary artery without angina pectoris; I10 Essential (primary) hypertension; I25.2 Old myocardial infarction; Z95.5 Presence of coronary angioplasty implant and graft; J45.909 Unspecified asthma, uncomplicated; K21.9 Gastro-esophageal reflux disease without esophagitis; E03.9 Hypothyroidism, unspecified; Z87.891 Personal history of nicotine dependence; Z79.899 Other long term (current) drug therapy
CPT/HCPCS: 36415; 71045; 80053; 81001; 83880; 84484; 85025; 93005; 99285; A9270-GY

== ENCOUNTER → 2018-09-18 | Outpatient (CLI) | payer OTHER ==
[~2018-09-18] MED LIST: Iopamidol 755 Mg/ML 100 ML Bottle IVPUSH ONE
== END ==
LOC: DL.CT 07:19
PROVIDERS: ATTEND Nurse Practitioner
DX: M79.604 Pain in right leg (principal); M79.605 Pain in left leg
CPT/HCPCS: 36415; 75635; 82565; Q9967

== ENCOUNTER 2021-01-29 06:56 | Emergency (ER) | payer MEDICARE, OTHER ==
[2021-01-29 07:23] VITALS: BP 125/61; PULSE 72
--- NOTE | 2021-01-29 08:19 | EDM.PDOC ---
ED HPI GENERAL MEDICAL PROBLEM - General Chief Complaint: ENT Problem Stated Complaint: EAR INFECTION ON LEFT SIDE Time Seen by Provider: 01/29/21 08:00 Source of Information: Reports: Patient History Limitations: Reports: No Limitations - History of Present Illness INITIAL COMMENTS - FREE TEXT/NARRATIVE: 65 y/o M c/o L ear pain x 2 days. Pt has been taking tylenol for pain with no relief. He is concerned he may have an ear infection. Pt denies fever, cough, chills, drugs, etoh. Duration: Day(s): Location: Reports: Other (L ear) Quality: Reports: Ache Severity: Mild Improves with: Reports: None Worsens with: Reports: None Left Ear Pain Score (Numeric/FACES): 10 - Related Data Allergies Allergy/AdvReac Type Severity Reaction Status Date / Time No Known Allergies Allergy Verified 01/29/21 07:28 Home Meds: Home Meds Levothyroxine [Synthroid] 50 mcg PO ACBREAKFAST 12/03/15 [History] Pantoprazole Sodium 40 mg PO DAILY 12/03/15 [History] Zolpidem [Ambien] 10 mg PO BEDTIME 02/09/16 [History] Aspirin [Adult Low Dose Aspirin EC] 81 mg PO DAILY 03/21/17 [History] Clopidogrel Bisulfate [Clopidogrel] 75 mg PO DAILY 03/21/17 [History] Metoprolol Succinate [Toprol XL] 50 mg PO DAILY 03/21/17 [History] Nitroglycerin 0.4 mg PO ASDIRECTED PRN 03/21/17 [History] atorvaSTATin Calcium [Atorvastatin Calcium] 80 mg PO BEDTIME 03/21/17 [History] Empagliflozin [Jardiance] 25 mg PO DAILY 12/11/18 [History] Isosorbide Mononitrate [Isosorbide Mononitrate ER] 30 mg PO DAILY 12/11/18 [History] Ranolazine [Ranexa] 500 mg PO BID 12/11/18 [History] carvediloL [Carvedilol] 6.25 mg PO DAILY 12/11/18 [History] Albuterol Sulfate [Albuterol Sulfate Hfa] 1 puff INH .PRN PRN 05/16/20 [History] Past Medical History - Past Health History Medical/Surgical History: Denies Medical/Surgical History HEENT History: Reports: Cataract, Hard of Hearing, Impaired Vision Cardiovascular History: Reports: Angina, CAD, Hypertension, [place], PTCA, Stents Respiratory History: Reports: Asthma, Bronchitis, Recurrent, SOB Gastrointestinal History: Reports: GERD Genitourinary History: Reports: None Musculoskeletal History: Reports: Arthritis, Back Pain, Chronic Neurological History: Reports: None Psychiatric History: Reports: None Endocrine/Metabolic History: Reports: Diabetes, Type II, Hypothyroidism, Obesity/BMI 30+ Do You Give Correction Boluses or Sliding Scale: No Hematologic History: Reports: None Immunologic History: Reports: None Oncologic (Cancer) History: Reports: None Dermatologic History: Reports: None - Infectious Disease History Infectious Disease History: Reports: Chicken Pox, Measles, Mumps, Shingles - Past Surgical History Head Surgeries/Procedures: Reports: None HEENT Surgical History: Reports: Cataract Surgery, Eye Surgery, LASIK, Tonsillectomy Cardiovascular Surgical History: Reports: Coronary Artery Stent, Percutaneous Transluminal Angioplasty GI Surgical History: Reports: Appendectomy Male Surgical History: Reports: None Musculoskeletal Surgical History: Reports: None Social & Family History - Family History Family Medical History: No Pertinent Family History - Tobacco Use Tobacco Use Status *Q: Never Tobacco User - Caffeine Use Caffeine Use: Reports: Coffee - Recreational Drug Use Recreational Drug Use: No - Living Situation & Occupation Living situation: Reports: , with Family Occupation: Employed ED ROS ENT - Review of Systems Review Of Systems: Comprehensive ROS is negative, except as noted in HPI. ED EXAM, ENT - Physical Exam Exam: See Below Exam Limited By: No Limitations General Appearance: Alert, No Apparent Distress Eye Exam: Bilateral Eye: PERRL Ears: Other (Normal R ear exam. reddened bulging L TM with dimished light reflex. ) Mouth/Throat: Normal Inspection, Normal Gums, Normal Lips, Normal Oropharynx, Normal Teeth Head: Atraumatic, Normocephalic Neck: Normal Inspection, Supple, Non-Tender, Full Range of Motion Respiratory/Chest: No Respiratory Distress, Lungs Clear, Normal Breath Sounds, No Accessory Muscle Use, Chest Non-Tender Course - Vital Signs Last Recorded V/S: Last Vital Signs Temp 97.0 F 01/29/21 07:22 Pulse 72 01/29/21 07:22 Resp 18 01/29/21 07:22 BP 125/61 01/29/21 07:22 Pulse Ox 96 01/29/21 07:22 Departure - Departure Time of Disposition: 08:17 Disposition: Home, Self-Care 01 Condition: Good Clinical Impression: Otitis media Qualifiers: Otitis media type: suppurative Chronicity: acute Laterality: left Recurrence: non-recurrent Spontaneous tympanic membrane rupture: without spontaneous rupture Qualified Code(s): H66.002 - Acute suppurative otitis media without spontaneous rupture of ear drum, left ear - Discharge Information *PRESCRIPTION DRUG MONITORING PROGRAM REVIEWED*: Not Applicable *COPY OF PRESCRIPTION DRUG MONITORING REPORT IN PATIENT BRUCE: Not Applicable Instructions: Otitis Media, Adult, [id number] Forms: ED Department Discharge Additional Instructions: RX: Augmentin Use Tylenol and or Motrin for pain as needed. Purchase Afrin over the counter at any drug store and use the nasal spray as directed. If any new symptoms or concerns develop contact your primary care provider or return to the ER. Sepsis Event Note (ED) - Evaluation Sepsis Screening Result: No Definite Risk - Focused Exam Vital Signs: Vital Signs Temp Pulse Resp BP Pulse Ox 01/29/21 07:22 97.0 F 72 18 125/61 96
== END 2021-01-29 08:34 | disposition home or self-care (01) ==
LOC: DL.ED 06:56
DX: H66.002 Acute suppurative otitis media without spontaneous rupture of ear drum, left ear (principal); I10 Essential (primary) hypertension; I25.10 Atherosclerotic heart disease of native coronary artery without angina pectoris; I25.2 Old myocardial infarction; K21.9 Gastro-esophageal reflux disease without esophagitis; E11.9 Type 2 diabetes mellitus without complications; E66.9 Obesity, unspecified; E03.9 Hypothyroidism, unspecified; Z79.82 Long term (current) use of aspirin; Z68.37 Body mass index [BMI] 37.0-37.9, adult; Z79.899 Other long term (current) drug therapy
CPT/HCPCS: 99282

== ENCOUNTER 2021-02-08 03:17 | Emergency (ER) | payer MEDICARE, OTHER ==
[2021-02-08] MEDS ORDERED: Acetaminophen/HYDROcodone 325-5 MG Tab PO ONE ×2 (03:18→04:12)
[2021-02-08 03:33] VITALS: BP 140/75; PULSE 66
[2021-02-08] MEDS ORDERED: predniSONE 20 MG Tab PO ONE (04:15)
--- NOTE | 2021-02-08 04:16 | EDM.PDOC ---
ED HPI GENERAL MEDICAL PROBLEM - General Chief Complaint: Back Pain or Injury Stated Complaint: SHARP PAIN IN BACK GOING DOWN LEG Time Seen by Provider: 02/08/21 03:35 Source of Information: Reports: Patient History Limitations: Reports: No Limitations - History of Present Illness INITIAL COMMENTS - FREE TEXT/NARRATIVE: ED with c/o sudden onset low back pain radiating down buttock and posterior thigh. Onset sudden while lifting up gas can for arc cutter plasma arc. Back Pain Score (Numeric/FACES): 8 - Related Data Allergies Allergy/AdvReac Type Severity Reaction Status Date / Time No Known Allergies Allergy Verified 02/08/21 03:33 Home Meds: Home Meds Levothyroxine [Synthroid] 50 mcg PO ACBREAKFAST 12/03/15 [History] Pantoprazole Sodium 40 mg PO DAILY 12/03/15 [History] Zolpidem [Ambien] 10 mg PO BEDTIME 02/09/16 [History] Aspirin [Adult Low Dose Aspirin EC] 81 mg PO DAILY 03/21/17 [History] Clopidogrel Bisulfate [Clopidogrel] 75 mg PO DAILY 03/21/17 [History] Metoprolol Succinate [Toprol XL] 50 mg PO DAILY 03/21/17 [History] Nitroglycerin 0.4 mg PO ASDIRECTED PRN 03/21/17 [History] atorvaSTATin Calcium [Atorvastatin Calcium] 80 mg PO BEDTIME 03/21/17 [History] Empagliflozin [Jardiance] 25 mg PO DAILY 12/11/18 [History] Isosorbide Mononitrate [Isosorbide Mononitrate ER] 30 mg PO DAILY 12/11/18 [History] Ranolazine [Ranexa] 500 mg PO BID 12/11/18 [History] carvediloL [Carvedilol] 6.25 mg PO DAILY 12/11/18 [History] Albuterol Sulfate [Albuterol Sulfate Hfa] 1 puff INH .PRN PRN 05/16/20 [History] Empagliflozin [Jardiance] 02/08/21 [History] Isosorbide Mononitrate [Isosorbide Mononitrate ER] 30 mg PO 02/08/21 [History] Ranolazine [Ranexa] 500 mg PO 02/08/21 [History] Past Medical History - Past Health History Medical/Surgical History: Denies Medical/Surgical History HEENT History: Reports: Cataract, Hard of Hearing, Impaired Vision Cardiovascular History: Reports: Angina, CAD, Hypertension, NE, PTCA, Stents Respiratory History: Reports: Asthma, Bronchitis, Recurrent, SOB Gastrointestinal History: Reports: GERD Genitourinary History: Reports: None Musculoskeletal History: Reports: Arthritis, Back Pain, Chronic Neurological History: Reports: None Psychiatric History: Reports: None Endocrine/Metabolic History: Reports: Diabetes, Type II, Hypothyroidism, Obesity/BMI 30+ Hematologic History: Reports: None Immunologic History: Reports: None Oncologic (Cancer) History: Reports: None Dermatologic History: Reports: None - Infectious Disease History Infectious Disease History: Reports: Chicken Pox, Measles, Mumps, Shingles - Past Surgical History Head Surgeries/Procedures: Reports: None HEENT Surgical History: Reports: Cataract Surgery, Eye Surgery, LASIK, Tonsillectomy Cardiovascular Surgical History: Reports: Coronary Artery Stent, Percutaneous Transluminal Angioplasty GI Surgical History: Reports: Appendectomy Male Surgical History: Reports: None Musculoskeletal Surgical History: Reports: None Social & Family History - Family History Family Medical History: No Pertinent Family History - Tobacco Use Tobacco Use Status *Q: Never Tobacco User Second Hand Smoke Exposure: No - Caffeine Use Caffeine Use: Reports: Coffee - Recreational Drug Use Recreational Drug Use: No - Living Situation & Occupation Living situation: Reports: , with Family Occupation: Employed ED ROS GENERAL - Review of Systems Review Of Systems: Comprehensive ROS is negative, except as noted in HPI. ED EXAM,LOWER BACK PAIN/INJURY - Physical Exam Exam: See Below Exam Limited By: No Limitations General Appearance: Alert, Obese Eye Exam: Bilateral Eye: EOMI Ears: Hearing Loss Nose: Normal Inspection Throat/Mouth: Normal Inspection Head: Atraumatic, Normocephalic Neck: Normal Inspection Respiratory/Chest: No Respiratory Distress Cardiovascular: Normal Peripheral Pulses GI/Abdominal: Normal Bowel Sounds Back Exam: Paraspinal Tenderness (right lower). No: CVA Tenderness (L), CVA Tenderness (R), Vertebral Tenderness Neurological: Alert, Normal Mood/Affect, Normal Dorsiflexion, No Motor/Sensory Deficits, Oriented x 3, Straight Leg Raise (R) Psychiatric: Normal Affect Skin Exam: Warm, Dry, Intact Course - Vital Signs Last Recorded V/S: Last Vital Signs Temp 97.4 F 02/08/21 03:32 Pulse 66 02/08/21 03:32 Resp 18 02/08/21 03:32 BP 140/75 02/08/21 03:32 Pulse Ox 97 02/08/21 03:32 - Orders/Labs/Meds Meds: Medications Discontinued Medications Generic Name Dose Route Start Last Admin Trade Name Melissa PRN Reason Stop Dose Admin Hydrocodone Bitart/Acetaminophen 1 tab 02/08/21 04:12 02/08/21 04:26 Acetaminophen/Hydrocodone 325-5 Mg Tab PO 02/08/21 04:13 1 tab ONETIME ONE Administration Hydrocodone Bitart/Acetaminophen Confirm 02/08/21 04:42 02/08/21 04:54 Acetaminophen/Hydrocodone 325-5 Mg Tab Administered 02/08/21 04:43 Not Given Dose 2 tab .ROUTE .STK-MED ONE Prednisone 20 mg 02/08/21 04:15 02/08/21 04:26 Prednisone 20 Mg Tab PO 02/08/21 04:16 20 mg ONETIME ONE Administration Departure - Departure Time of Disposition: 04:31 Disposition: Home, Self-Care 01 Condition: Good Clinical Impression: Sciatica Qualifiers: Laterality: right Qualified Code(s): M54.31 - Sciatica, right side - Discharge Information *PRESCRIPTION DRUG MONITORING PROGRAM REVIEWED*: No *COPY OF PRESCRIPTION DRUG MONITORING REPORT IN PATIENT BRUCE: No Instructions: Sciatica, [id number] Referrals: PCP,None [Primary Care Provider] - Forms: ED Department Discharge Additional Instructions: rest ice to low back hydrocodone Apap 5/325 one every 4 hours as needed for severe back pain tylenol 500mg every 4 hours as needed for moderate back pain follow up in clinic on Tuesday urgent return katie worsen, increased pain weakness or loss of control of bowel and bladder Sepsis Event Note (ED) - Evaluation Sepsis Screening Result: No Definite Risk
[2021-02-08] MEDS ORDERED: Acetaminophen/HYDROcodone 325-5 MG Tab ONE (04:42)
== END 2021-02-08 04:54 | disposition home or self-care (01) ==
LOC: DL.ED 03:17
DX: M54.41 Lumbago with sciatica, right side (principal); I25.119 Atherosclerotic heart disease of native coronary artery with unspecified angina pectoris; I10 Essential (primary) hypertension; I25.2 Old myocardial infarction; K21.9 Gastro-esophageal reflux disease without esophagitis; E11.9 Type 2 diabetes mellitus without complications; E03.9 Hypothyroidism, unspecified; E66.9 Obesity, unspecified; Z68.30 Body mass index [BMI] 30.0-30.9, adult; Z95.5 Presence of coronary angioplasty implant and graft; Z79.82 Long term (current) use of aspirin; Z79.02 Long term (current) use of antithrombotics/antiplatelets; Z79.899 Other long term (current) drug therapy
CPT/HCPCS: 99283; A9270; J7512

== ENCOUNTER 2022-07-30 10:01 | Emergency (ER) | payer MEDICARE, OTHER ==
[2022-07-30] MEDS ORDERED: Sodium Chloride 0.9% 10 ML Syringe FLUSH PRN (10:07)
[2022-07-30] MEDS ORDERED: Nitroglycerin 0.4 MG Tab.SL SL PRN (10:12)
[2022-07-30] MEDS ORDERED: Aspirin 81 MG Tab.Chew PO ONE (10:12)
[2022-07-30] MEDS ORDERED: methylPREDNISolone Sodium Succinate 125 MG/2 ML SDV IVPUSH ONE (10:29)
[2022-07-30] MEDS ORDERED: Albuterol/Ipratropium 3.0-0.5 MG/3 ML Neb Soln NEB ONE (10:29)
[2022-07-30 10:35] VITALS: BP 138/87
[2022-07-30 10:53] LABS: PTT,PARTIAL THROMBOPLSTIN TIME 25.8 SEC (22.0-34.0)
[2022-07-30 10:58] LABS: ANION GAP 15.8 mEq/L (7-13)
[2022-07-30 11:00] VITALS: PULSE 97
[2022-07-30 11:08] LABS: CORONAVIRUS COVID-19 NAA NEGATIVE (NEGATIVE); RESPIRATORY SYNCYTIAL VIR NAA NEGATIVE (NEGATIVE)
== END 2022-07-30 13:13 | disposition home or self-care (01) ==
LOC: DL.ED 10:01
DX: J45.21 Mild intermittent asthma with (acute) exacerbation (principal); I25.119 Atherosclerotic heart disease of native coronary artery with unspecified angina pectoris; I10 Essential (primary) hypertension; I25.2 Old myocardial infarction; K21.9 Gastro-esophageal reflux disease without esophagitis; E11.9 Type 2 diabetes mellitus without complications; E03.9 Hypothyroidism, unspecified; E66.9 Obesity, unspecified; Z68.38 Body mass index [BMI] 38.0-38.9, adult; Z79.899 Other long term (current) drug therapy; Z79.82 Long term (current) use of aspirin; Z79.02 Long term (current) use of antithrombotics/antiplatelets; Z20.822 Contact with and (suspected) exposure to COVID-19
CPT/HCPCS: 0241U; 36415; 71045; 80053; 83605; 83690; 83880; 84484; 85025; 85610; 85730; 87040; 93005; 93010; 94640; 96374; 99284; 99285-25; A9270-GY; J2930; J7620-GY

== ENCOUNTER 2023-01-10 06:43 | Day surgery (SDC) | payer MEDICARE, OTHER ==
[~2023-01-10 06:43] MED LIST changes: +Dextrose 5%-0.45% NaCl 1,000 ML IV SCH; -Iopamidol 755 Mg/ML 100 ML Bottle IVPUSH ONE
[2023-01-10] MEDS ORDERED: Midazolam 1 MG/ML 2 ML SDV IV ONE ×3 (07:28→08:46)
[2023-01-10] MEDS ORDERED: Midazolam 1 MG/ML 2 ML SDV ONE (07:28)
[2023-01-10] MEDS ORDERED: fentaNYL 100 MCG/2 ML SDV ONE (07:28)
[2023-01-10] MEDS ORDERED: fentaNYL 100 MCG/2 ML SDV IV ONE ×3 (07:28→08:45)
[2023-01-10 09:43] VITALS: BP 128/49; PULSE 58
== END 2023-01-10 10:31 | disposition home or self-care (01) ==
LOC: DL.ENDO 06:43
PROVIDERS: ATTEND Internal Medicine Gastroenterology
DX: K29.50 Unspecified chronic gastritis without bleeding (principal); K31.89 Other diseases of stomach and duodenum; K21.9 Gastro-esophageal reflux disease without esophagitis; E66.09 Other obesity due to excess calories; I25.10 Atherosclerotic heart disease of native coronary artery without angina pectoris; E78.5 Hyperlipidemia, unspecified; I50.9 Heart failure, unspecified; I25.5 Ischemic cardiomyopathy; H91.90 Unspecified hearing loss, unspecified ear; E11.9 Type 2 diabetes mellitus without complications; E03.9 Hypothyroidism, unspecified; N40.0 Benign prostatic hyperplasia without lower urinary tract symptoms; G47.00 Insomnia, unspecified; Z95.5 Presence of coronary angioplasty implant and graft; Z98.890 Other specified postprocedural states; Z68.35 Body mass index [BMI] 35.0-35.9, adult; Z91.013 Allergy to seafood
CPT/HCPCS: 43239; 87077; J2250; J3010; J7042; 88305; 88342

== ENCOUNTER 2023-01-17 05:08 | Day surgery (SDC) | payer MEDICARE, OTHER ==
[2023-01-17] MEDS ORDERED: Dextrose 5%-0.45% NaCl 1,000 ML IV SCH (06:00)
[2023-01-17] MEDS ORDERED: Midazolam 1 MG/ML 2 ML SDV ONE (06:15)
[2023-01-17] MEDS ORDERED: fentaNYL 100 MCG/2 ML SDV ONE (06:15)
[2023-01-17] MEDS ORDERED: fentaNYL 100 MCG/2 ML SDV IV ONE ×3 (06:31→07:42)
[2023-01-17] MEDS ORDERED: Midazolam 1 MG/ML 2 ML SDV IV ONE ×7 (06:32→07:42)
[2023-01-17 08:24] VITALS: BP 134/63; PULSE 51
== END 2023-01-17 08:45 | disposition home or self-care (01) ==
LOC: DL.ENDO 05:08
PROVIDERS: ATTEND Internal Medicine Gastroenterology
DX: K21.9 Gastro-esophageal reflux disease without esophagitis (principal); E66.09 Other obesity due to excess calories; I25.10 Atherosclerotic heart disease of native coronary artery without angina pectoris; I25.5 Ischemic cardiomyopathy; I50.9 Heart failure, unspecified; H91.90 Unspecified hearing loss, unspecified ear; E11.9 Type 2 diabetes mellitus without complications; E03.9 Hypothyroidism, unspecified; N40.0 Benign prostatic hyperplasia without lower urinary tract symptoms; G47.00 Insomnia, unspecified; Z68.35 Body mass index [BMI] 35.0-35.9, adult; Z80.0 Family history of malignant neoplasm of digestive organs; Z98.890 Other specified postprocedural states; Z90.89 Acquired absence of other organs; Z90.49 Acquired absence of other specified parts of digestive tract; K57.30 Diverticulosis of large intestine without perforation or abscess without bleeding; K64.4 Residual hemorrhoidal skin tags
CPT/HCPCS: J2250; J3010; J7042

== ENCOUNTER 2023-03-12 22:28 | Emergency (ER) | payer MEDICARE, OTHER ==
[2023-03-12 22:54] VITALS: BP 132/80; PULSE 83
== END 2023-03-12 23:15 | disposition home or self-care (01) ==
LOC: DL.ED 22:28
DX: U07.1 COVID-19 (principal); I25.10 Atherosclerotic heart disease of native coronary artery without angina pectoris; I25.2 Old myocardial infarction; J45.909 Unspecified asthma, uncomplicated; K21.9 Gastro-esophageal reflux disease without esophagitis; E03.9 Hypothyroidism, unspecified; Z86.16 Personal history of COVID-19; Z91.013 Allergy to seafood; Z79.02 Long term (current) use of antithrombotics/antiplatelets; Z79.899 Other long term (current) drug therapy
CPT/HCPCS: 99283

== ENCOUNTER 2023-03-14 11:41 | Emergency (ER) | payer MEDICARE, OTHER ==
[2023-03-14 14:28] LABS: BASOPHILS PERCENT AUTO 0.3 % (0.0-1.0); EOSINOPHILS PERCENT AUTO 0.5 % (1.0-3.0); HEMATOCRIT 40.3 % (40.0-54.0); HEMOGLOBIN 13.4 g/dL (14.0-18.0); LYMPHOCYTES PERCENT AUTO 11.3 % (20.5-50.1); MEAN CORPUSCULAR HEMOGLOBIN 30.5 pg (27.0-34.0); MEAN CORPUSCULAR HGB CONC 33.3 g/dL (33.0-35.0); MEAN CORPUSCULAR VOLUME 91.8 fL (80-100); MONOCYTES PERCENT AUTO 5.2 % (2-8); NEUTROPHILS PERCENT AUTO 82.7 % (42.2-75.2); PLATELET COUNT,PLT 198 10^3/uL (150-450); RED BLOOD CELL COUNT 4.39 10^6/uL (4.6-6.2); WHITE BLOOD CELL COUNT,WBC 9.8 10^3/uL (5.0-10.0)
[2023-03-14 14:49] LABS: INFLUENZA A NAA NEGATIVE (NEGATIVE); INFLUENZA B NAA NEGATIVE (NEGATIVE); RESPIRATORY SYNCYTIAL VIR NAA NEGATIVE (NEGATIVE)
[2023-03-14 14:49] LABS: A/G RATIO 0.9; ALANINE AMINOTRANSFERASE,ALT 20 U/L (16-63); ALBUMIN 3.5 g/dL (3.4-5.0); ALKALINE PHOSPHATASE 88 U/L (46-116); ANION GAP 15.1 mEq/L (7-13); ASPARTATE AMNIOTRANSFERASE,AST 14 U/L (15-37); BILIRUBIN TOTAL 0.9 mg/dL (0.2-1.0); BLOOD UREA NITROGEN,BUN 8 mg/dL (7-18); CALCIUM 8.7 mg/dL (8.5-10.1); CARBON DIOXIDE,CO2 25 mmol/L (21-32); CHLORIDE,CL 96 mmol/L (98-107); CREATININE 1.14 mg/dL (0.70-1.30); GLUCOSE RANDOM 146 mg/dL (70-99); POTASSIUM,K 4.1 mmol/L (3.5-5.1); PROTEIN TOTAL,TP 7.5 g/dL (6.4-8.2); SODIUM,NA 132 mmol/L (136-145)
[2023-03-14 14:52] LABS: ESTIMATED GFR 70 mL/min (>=60)
[2023-03-14 14:54] LABS: CORONAVIRUS COVID-19 NAA POSITIVE (NEGATIVE)
[2023-03-14 15:46] VITALS: BP 127/69; PULSE 83
== END 2023-03-14 15:59 | disposition home or self-care (01) ==
LOC: DL.ED 11:41
DX: U07.1 COVID-19 (principal); E78.00 Pure hypercholesterolemia, unspecified; I10 Essential (primary) hypertension; J45.909 Unspecified asthma, uncomplicated; K21.9 Gastro-esophageal reflux disease without esophagitis; E03.9 Hypothyroidism, unspecified; Z86.16 Personal history of COVID-19; Z79.02 Long term (current) use of antithrombotics/antiplatelets; Z79.84 Long term (current) use of oral hypoglycemic drugs; Z79.899 Other long term (current) drug therapy; Z91.013 Allergy to seafood
CPT/HCPCS: 0241U; 36415; 71045; 80053; 84484; 85025; 99283; 99284

== ENCOUNTER 2024-04-22 14:03 | Emergency (ER) | payer MEDICARE, OTHER ==
[2024-04-22 14:36] VITALS: BP 135/59; PULSE 77
[2024-04-22] MEDS: Albuterol/Ipratropium 3.0-0.5 MG/3 ML Neb Soln NEB ONE (14:42)
[2024-04-22] MEDS: Dexamethasone 4 MG/ML SDV PO ONE (14:42)
[2024-04-22] MEDS: Take Home: Albuterol 0.083% 2.5 MG/3 ML Neb Soln, 5 Neb Pack NEB ONE (15:19)
[2024-04-22] MEDS: Take Home: Doxycycline 100 MG Cap, 4 Cap Pack PO ONE (15:19)
== END 2024-04-22 15:25 | disposition home or self-care (01) ==
LOC: DL.ED 14:03
DX: J40 Bronchitis, not specified as acute or chronic (principal); I10 Essential (primary) hypertension; E78.00 Pure hypercholesterolemia, unspecified; K21.9 Gastro-esophageal reflux disease without esophagitis; E03.9 Hypothyroidism, unspecified; Z86.16 Personal history of COVID-19; Z79.899 Other long term (current) drug therapy; Z79.84 Long term (current) use of oral hypoglycemic drugs; Z79.890 Hormone replacement therapy; Z91.013 Allergy to seafood
CPT/HCPCS: 71045; 99283; 99285; A9270; J1100; J7620-GY